=== PATIENT | male | born 1950 | race Caucasian/White ===

== ENCOUNTER 2021-01-01 13:09 | Day surgery (SDC) | payer MEDICARE ==
[~2021-01-01] VITALS: Ht 182.9 cm; Wt 89.1 kg
[2021-01-01] MEDS ORDERED: LIDOCAINE 2%, 20ML ONE (13:55)
== END 2021-01-01 15:31 | disposition home or self-care (01) ==
LOC: CACL 13:09
PROVIDERS: ATTEND Internal Medicine Cardiovascular Disease
DX: R55 Syncope and collapse (principal); I10 Essential (primary) hypertension; Z79.82 Long term (current) use of aspirin; Z79.899 Other long term (current) drug therapy
CPT/HCPCS: 33285; C1764

== ENCOUNTER 2021-01-17 13:03 | Outpatient (CLI) | payer MEDICARE | END 2021-01-17 23:59 | disposition home or self-care (01) | LOC: CVU 13:03 | PROVIDERS: ATTEND Internal Medicine Cardiovascular Disease | DX: R03.0 Elevated blood-pressure reading, without diagnosis of hypertension (principal); Z82.49 Family history of ischemic heart disease and other diseases of the circulatory system | CPT/HCPCS: 93306; 93356 ==